=== PATIENT | male | born 1960 | race Caucasian/White ===

== ENCOUNTER 2017-05-21 07:01 | Day surgery (SDC) | payer OTHER ==
[2017-05-15 10:46] VITALS: BMI 51.4
[2017-05-21] MEDS ORDERED: LIDOCAINE HCL/PF 2% SDV 5ML VIAL ONE ×2 (07:24→09:02)
[2017-05-21] MEDS ORDERED: PROPOFOL 20 ML ONE ×5 (07:24→09:03)
[2017-05-21 08:03] VITALS: TEMP 97.8
[2017-05-21] MEDS ORDERED: MIDAZOLAM HCL 2 MG/2 ML SINGLE DOSE VIAL ONE ×2 (09:24)
[2017-05-21 10:26] VITALS: BP 121/79; PULSE 64
--- NOTE | 2017-05-22 11:25 | PATH ---
Surgical Pathology Report Patient Name: ADELSO ANTONIO [facility]. Rec. #: [id number] /Age/Gender: 1960 (Age: 57) / M Account: [id number] [facility] Taken: 05/21/2017 Received: 05/21/2017 Reported: 05/22/2017 Physicians: Gianluca Dennis M.D. Specimen(s) Received A: BX DUODENUM B: BX ANTRUM Clinical History Preoperative diagnosis: GERD, rule out colon cancer Postoperative diagnosis: Rule out celiac, hiatal hernia, gastritis, diverticulosis Final Diagnosis A. DUODENUM, BIOPSY: DUODENAL MUCOSA WITH NO PATHOLOGIC CHANGES. NO HISTOLOGIC EVIDENCE OF GLUTEN SENSITIVE ENTEROPATHY (CELIAC SPRUE) IDENTIFIED. B. STOMACH, ANTRUM, BIOPSY: FOCAL MILD CHRONIC GASTRITIS. IMMUNOSTAIN FOR H. PYLORI IS NEGATIVE. Electronically Signed Brian Asif M.D. Gross Description A. Received in formalin, labeled "duodenum" is a riggs, irregular portion of soft tissue measuring 0.2 cm. in greatest dimension. The specimen is submitted in toto in one cassette. B. Received in formalin, labeled "antrum" are 2 riggs, irregular portions of soft tissue measuring 0.3 and 0.5 cm. in greatest dimension. The specimens are submitted in toto in one cassette. 05/21/201705/21/2017
== END 2017-05-21 10:30 | disposition home or self-care (01) ==
LOC: FASU-ENDO 07:01
PROVIDERS: ATTEND Internal Medicine Gastroenterology
PROC: 0DB68ZX Excision of Stomach, Via Natural or Artificial Opening Endoscopic, Diagnostic (ICD-10-PCS; 2017-05-21)
PROC: 0DJD8ZZ Inspection of Lower Intestinal Tract, Via Natural or Artificial Opening Endoscopic (ICD-10-PCS; principal; 2017-05-21 09:16)
PROC: 0DB98ZX Excision of Duodenum, Via Natural or Artificial Opening Endoscopic, Diagnostic (ICD-10-PCS; 2017-05-21 09:16)
DX: Z12.11 Encounter for screening for malignant neoplasm of colon (principal); K57.30 Diverticulosis of large intestine without perforation or abscess without bleeding; K29.50 Unspecified chronic gastritis without bleeding; K44.9 Diaphragmatic hernia without obstruction or gangrene
CPT/HCPCS: 43239; G0121; 82962; 88305-TC; 88342-TC